=== PATIENT | female | born 1990 | race Caucasian/White ===

== ENCOUNTER 2018-12-18 10:55 | Day surgery (SDC) | payer BC ==
[2018-12-18] MEDS ORDERED: ALBUTEROL SULFATE 0.083% NEB 2.5 MG/3 ML AMPUL NEB ONE (11:53)
[2018-12-18] MEDS ORDERED: FAMOTIDINE INJ/PF 20 MG/2 ML SDV IV ONE ×2 (11:59→12:15)
[2018-12-18] MEDS ORDERED: SCOPOLAMINE HYDROBROMIDE 1.5 MG PATCH.TD72 ONE (11:59)
[2018-12-18] MEDS ORDERED: SCOPOLAMINE HYDROBROMIDE 1.5 MG PATCH.TD72 TD ONE (12:15)
[2018-12-18] MEDS ORDERED: RINGERS SOLUTION,LACTATED 1,000 ML IV ONE (12:15)
[2018-12-18 12:23] LABS: HEMATOCRIT 37.6 % (36.0-47.0); HEMOGLOBIN 13.1 g/dL (12.0-15.5); MEAN CORPUSCULAR HEMOGLOBIN 29.2 pg (27.0-33.4); MEAN CORPUSCULAR HGB CONC 34.8 g/dL (32.0-36.0); MEAN CORPUSCULAR VOLUME 84 fl (80-97); PLATELET COUNT 148 10^3/uL (150-450); RED BLOOD COUNT 4.48 10^6/uL (3.72-5.28); WHITE BLOOD COUNT 3.7 10^3/uL (4.0-10.5)
[2018-12-18] MEDS ORDERED: LIDOCAINE 2% INJ-PF (100 MG/5 ML) SYRINGE ONE (12:45)
[2018-12-18] MEDS ORDERED: HYDROMORPHONE HCL INJ/PF 2 MG/ML AMPULE ONE (12:46)
[2018-12-18] MEDS ORDERED: PROPOFOL INJ 200 MG/20 ML VIAL IV ONE (12:46)
[2018-12-18] MEDS ORDERED: FENTANYL CITRATE INJ/PF 250 MCG/5 ML AMPULE ONE (12:46)
[2018-12-18] MEDS ORDERED: DIPHENHYDRAMINE HCL 50 MG/ML VIAL IV PRN (13:24)
[2018-12-18] MEDS ORDERED: FENTANYL CITRATE INJ/PF 100 MCG/2 ML AMPUL IV PRN ×3 (13:24)
[2018-12-18] MEDS: FENTANYL CITRATE INJ/PF 100 MCG/2 ML AMPUL ONE ×2 (13:55→14:05)
[2018-12-18] MEDS ORDERED: KETOROLAC TROMETHAMINE INJ/PF 30 MG/1 ML SDV ONE (13:55)
[2018-12-18] MEDS ORDERED: RINGERS SOLUTION,LACTATED 1,000 ML IV PRN (13:57)
[2018-12-18] MEDS ORDERED: OXYCODONE-ACETAMINOPHEN 5-325 MG TABLET PO PRN ×2 (13:57)
--- NOTE | 2018-12-18 14:04 | Operative Report ---
Operative Report DATE OF SURGERY: 12/18/18 PREOPERATIVE DIAGNOSIS: Pelvic pain, suspected right ovarian cyst POSTOPERATIVE DIAGNOSIS: Pelvic pain with bilateral endometriosis OPERATION: Diagnostic laparoscopy SURGEON: ROSITA LUGO ANESTHESIA: GA TISSUE REMOVED OR ALTERED: None COMPLICATIONS: None ESTIMATED BLOOD LOSS: Minimal INTRAOPERATIVE FINDINGS: Patient had endometriosis implants bilaterally behind both ovaries and on the right ovary as well. The right ovary had no large cysts present. It appears that her previous hemorrhagic cyst has nearly resolved from her previous ultrasound. PROCEDURE: Patient was taken the OR and placed in supine position. General anesthesia was induced. She is placed in dorsolithotomy position using Hayder stirrups. Her abdomen perineum and vagina were prepared and draped in sterile fashion. Her bladder was drained with a red rubber catheter and a sponge stick was placed in the vagina for manipulation of the uterus. Incision was made at the umbilicus natural umbilical defect was identified and dilated using a Katherine clamp. This allowed a blunt 5 port to be placed. Laparoscopy confirmed appropriate placement and the abdomen was insufflated with CO2 gas. Next a suprapubic incision was made and a 5 mm port placed under laparoscopic visualization. View of the pelvis was good. Both ovaries were inspected. No dominant cyst were noted. It appears the cyst on the right has nearly resolved. However behind a each ovary was a large pockets of endometriosis present. There were a few small implants on the ovary on the right near where the blood supply of the ovary enters from the pelvic side. The endometriosis is very diffuse and over vital structures and therefore any excision or cautery was not done. I would recommend a global treatment with Lupron. Pictures were taken. At this point the suprapubic port was removed. The gas was allowed to escape from the abdomen. The umbilical port and scope were removed at the same time. The fascia at the umbilicus was closed with a 2-0 Vicryl stitch and skin closed with a 4-0 undyed Vicryl stitch. Sponge stick was removed from the vagina. She is extubated in the OR and taken recovery room in stable condition.
[2018-12-18] MEDS ORDERED: ONDANSETRON HCL INJ/PF 4 MG/2 ML SDV ONE (14:06)
[2018-12-18] MEDS ORDERED: NEOSTIGMINE METHYLSULFATE 10 MG/10 ML VIAL ONE (14:06)
[2018-12-18] MEDS ORDERED: ROCURONIUM BROMIDE INJ 50 MG/5 ML VIAL IV ONE (14:06)
[2018-12-18] MEDS ORDERED: GLYCOPYRROLATE 1 MG/5 ML VIAL ONE (14:06)
--- NOTE | 2018-12-18 14:09 | Discharge Summary ---
Discharge Summary (SDC) - Discharge Final Diagnosis: Endometriosis Date of Surgery: 12/18/18 Discharge Date: 12/18/18 Condition: Good Prescriptions: Oxycodone HCl/Acetaminophen [Percocet 5-325 mg Tablet] 1 tab PO Q6HP PRN 7 Days #28 tablet PRN Reason: Ibuprofen [Motrin 800 mg Tablet] 800 mg PO Q8HP PRN #30 tablet PRN Reason: Referrals: ELSIE MCLEAN, B[employer] ATT[employer]ER-C [Primary Care Provider] - Discharge Diet: Regular Discharge Activity: Balance Activity w/Rest, Pelvic Rest Home Care Assistance: None Needed Report the Following to Your Physician Immediately: Fever over 101 Degrees, Unusual Bleeding
[2018-12-18] MEDS: HYDROMORPHONE HCL INJ/PF 2 MG/ML AMPULE ONE ×3 (14:15→14:25)
[2018-12-18] MEDS ORDERED: IBUPROFEN 800 MG TABLET PO PRN (14:30)
[2018-12-18] MEDS ORDERED: KETOROLAC TROMETHAMINE INJ/PF 30 MG/1 ML SDV IV PRN (14:30)
[2018-12-18] MEDS ORDERED: OXYCODONE-ACETAMINOPHEN 5-325 MG TABLET ONE (15:08)
[2018-12-18 17:02] VITALS: BP 106/59
== END 2018-12-18 16:30 | disposition home or self-care (01) ==
LOC: OROUT 10:55
PROVIDERS: ATTEND Obstetrics & Gynecology
DX: N80.1 Endometriosis of ovary (principal); R10.2 Pelvic and perineal pain; F17.210 Nicotine dependence, cigarettes, uncomplicated
CPT/HCPCS: 86900; 86901; 36415; 86850; 85027; 81025; 00840; 49320; J3490 ×2; J3010 ×2; J2001; J1885; J2710; J1170; J2405; J2704; S0028; 840

== ENCOUNTER 2018-12-25 11:16 | Emergency (ER) | payer BC ==
[2018-12-25] MEDS ORDERED: NORMAL SALINE 1000 ML 1,000 ML IV ONE (11:58)
[2018-12-25] MEDS ORDERED: OXYCODONE-ACETAMINOPHEN 5-325 MG TABLET PO ONE (11:59)
--- NOTE | 2018-12-25 12:01 | ER Document Report ---
ED Medical Screen (RME) - General Chief Complaint: Anxiety Stated Complaint: DIFFICULTY BREATHING Time Seen by Provider: 12/25/18 11:58 Primary Care Provider: ELSIE MCLEAN FNP-C [Primary Care Provider] - Follow up as needed Mode of Arrival: Wheelchair Information source: Patient Notes: Patient presents with complaints of pelvic and vaginal pain since having a l aparoscopic procedure to diagnose endometriosis last week. Patient reports vaginal discharge and constipation. Patient denies any fever or urinary symptoms. I have greeted and performed a rapid initial assessment of this patient. A comprehensive ED assessment and evaluation of the patient, analysis of test results and completion of the medical decision making process will be conducted by additional ED providers. TRAVEL OUTSIDE OF THE [place] IN LAST 30 DAYS: No - Related Data Allergies/Adverse Reactions: No Known Allergies Allergy (Verified 12/25/18 11:16) Past Medical History - Past Medical History Cardiac Medical History: Denies: Hx Coronary Artery Disease, Hx Heart Attack, Hx Hypertension Pulmonary Medical History: Denies: Hx Asthma, Hx Bronchitis, Hx COPD, Hx Pneumonia Neurological Medical History: Denies: Hx Cerebrovascular Accident, Hx Seizures Renal/ Medical History: Reports: Hx Kidney Stones Musculoskeltal Medical History: Denies Hx Arthritis Past Surgical History: Reports: Hx Oral Surgery - [place] teeth, Hx Orthopedic Surgery - Ganglion cyst removed from hand - Immunizations Hx Diphtheria, Pertussis, Tetanus Vaccination: Yes Physical Exam - Vital signs Vitals: Pulse BP Pulse Ox 113 H 128/71 H 100 12/25/18 11:20 12/25/18 11:20 12/25/18 11:20 - Abdominal Tenderness: Tender - Lower pelvic Course - Vital Signs Vital signs: Temp Pulse Resp BP Pulse Ox 113 H 128/71 H 100 12/25/18 11:20 12/25/18 11:20 12/25/18 11:20 Doctor's Discharge - Discharge Referrals: ELSIE MCLEAN FNP-C [Primary Care Provider] - Follow up as needed
[2018-12-25 12:37] LABS: ABSOLUTE EOSINOPHILS # (AUTO) 0.1 10^3/uL (0.0-0.6); ABSOLUTE LYMPHOCYTES (AUTO) 1.6 10^3/uL (0.5-4.7); ABSOLUTE MONOCYTES (AUTO) 0.5 10^3/uL (0.1-1.4); BASOPHILS % (AUTO) 0.5 % (0-2); EOSINOPHILS % (AUTO) 1.3 % (0-6); HEMATOCRIT 41.4 % (36.0-47.0); HEMOGLOBIN 14.3 g/dL (12.0-15.5); LYMPHOCYTES % (AUTO) 22.3 % (13-45); MEAN CORPUSCULAR HEMOGLOBIN 28.7 pg (27.0-33.4); MEAN CORPUSCULAR HGB CONC 34.4 g/dL (32.0-36.0); MEAN CORPUSCULAR VOLUME 83 fl (80-97); MONOCYTES % (AUTO) 7.4 % (3-13); PLATELET COUNT 200 10^3/uL (150-450); RED BLOOD COUNT 4.96 10^6/uL (3.72-5.28); SEGMENTED NEUTROPHILS % (AUTO) 68.5 % (42-78); TOTAL CELLS COUNTED % (AUTO) 100 %; WHITE BLOOD COUNT 7.4 10^3/uL (4.0-10.5)
[2018-12-25 12:53] LABS: APPEARANCE,URINE SLIGHTLY-CLOUDY; BILIRUBIN,URINE NEGATIVE (NEGATIVE); COLOR,URINE YELLOW; GLUCOSE, URINE NEGATIVE (NEGATIVE); KETONES,URINE NEGATIVE (NEGATIVE); LEUKOCYTE ESTERASE,URINE NEGATIVE (NEGATIVE); NITRITE,URINE NEGATIVE (NEGATIVE); PROTEIN,URINE NEGATIVE (NEGATIVE); URINE SPECIFIC GRAVITY 1.013; UROBILINOGEN,URINE NEGATIVE mg/dL (<2.0)
[2018-12-25 12:59] LABS: ALANINE AMINOTRANSFERASE 17 U/L (9-52); ALBUMIN 4.8 g/dL (3.5-5.0); ALKALINE PHOSPHATASE 63 U/L (38-126); ANION GAP 9 (5-19); ASPARTATE AMINO TRANSFERASE 23 U/L (14-36); BILIRUBIN,DIRECT 0.3 mg/dL (0.0-0.4); BILIRUBIN,TOTAL 0.6 mg/dL (0.2-1.3); BLOOD UREA NITROGEN 17 mg/dL (7-20); CALCIUM 9.9 mg/dL (8.4-10.2); CARBON DIOXIDE 26 mmol/L (22-30); CHLORIDE 105 mmol/L (98-107); GLUCOSE 86 mg/dL (75-110); POTASSIUM 4.2 mmol/L (3.6-5.0); SODIUM 139.8 mmol/L (137-145); TOTAL PROTEIN 8.2 g/dL (6.3-8.2)
[2018-12-25] MEDS ORDERED: KETOROLAC TROMETHAMINE INJ/PF 30 MG/1 ML SDV IV ONE (13:12)
--- NOTE | 2018-12-25 14:04 | ER Document Report ---
ED General - General Chief Complaint: Anxiety Stated Complaint: DIFFICULTY BREATHING Time Seen by Provider: 12/25/18 11:58 Primary Care Provider: ROSITA FAIRCHILD MD [ACTIVE STAFF] - Follow up as needed Mode of Arrival: Wheelchair Information source: Patient Notes: Patient is a 28-year-old female presenting to the emergency department chief complaint of pelvic pain and lower abdominal pain. Patient reports she had a exploratory laparotomy done [address] Cem Fairchild here at [place]. She reports at that time she was diagnosed with endometriosis. She reports she was recovering well and was feeling back to her normal self until Monday which was 2 days ago. She reports at that time pain increased significantly, and has worsened to the point of her returning to the emergency department. She denies any nausea, vomiting, diarrhea or fever. She reports it feels like a pulling and tearing pain in her low abdomen down to her vaginal area. She also reports that she was undergoing treatment for PID approximately 2 weeks ago and states that she only took about 4 days worth of the antibiotics and then stopped. TRAVEL OUTSIDE OF THE [place] IN LAST 30 DAYS: No - Related Data Allergies/Adverse Reactions: No Known Allergies Allergy (Verified 12/25/18 11:16) Past Medical History - General Information source: Patient - Social History Smoking Status: Current Every Day Smoker Chew tobacco use (# tins/day): No Frequency of alcohol use: None Drug Abuse: None Family History: DM Patient has suicidal ideation: No Patient has homicidal ideation: No - Past Medical History Cardiac Medical History: Denies: Hx Coronary Artery Disease, Hx Heart Attack, Hx Hypertension Pulmonary Medical History: Denies: Hx Asthma, Hx Bronchitis, Hx COPD, Hx Pneumonia Neurological Medical History: Denies: Hx Cerebrovascular Accident, Hx Seizures Renal/ Medical History: Reports: Hx Kidney Stones. Denies: Hx Peritoneal Dialysis Musculoskeletal Medical History: Denies Hx Arthritis Past Surgical History: Reports: Hx Gynecologic Surgery - laproscopy, Hx Oral Surgery - [place] teeth, Hx Orthopedic Surgery - Ganglion cyst removed from hand - Immunizations Hx Diphtheria, Pertussis, Tetanus Vaccination: Yes Physical Exam - Vital signs Vitals: Pulse BP Pulse Ox 113 H 128/71 H 100 12/25/18 11:20 12/25/18 11:20 12/25/18 11:20 - Notes Notes: PHYSICAL EXAMINATION: GENERAL: Well-appearing, well-nourished. HEAD: Atraumatic, normocephalic. EYES: Pupils equal round and reactive to light, extraocular movements intact, sclera anicteric, conjunctiva are normal. ENT: Nares patent, oropharynx clear without exudates. Moist mucous membranes. NECK: Normal range of motion, supple without lymphadenopathy LUNGS: Breath sounds clear to auscultation bilaterally and equal. No wheezes rales or rhonchi. HEART: Regular rate and rhythm without murmurs ABDOMEN: Soft, nondistended abdomen. TTP to RLQ. No guarding, no rebound. No masses appreciated. : CMT, R adnexal tenderness, white vaginal d/c on speculum exam. No CVAT. Musculoskeletal: Normal range of motion, no pitting or edema. No cyanosis. NEUROLOGICAL: Cranial nerves grossly intact. Normal speech, normal gait. Normal sensory, motor exams PSYCH: Normal mood, normal affect. SKIN: Warm, Dry, normal turgor, no rashes or lesions noted. Abdominal lab sites intact and healing well with no erythema or drainage. Course - Re-evaluation Re-evalutation: CBC, CMP and urinalysis are unremarkable. A transvaginal ultrasound was performed and shows no acute findings. Patient was then sent for a CT of the abdomen and pelvis with IV contrast. CT of the abdomen pelvis shows trace free fluid in the pelvis and a small amount of intra-abdominal free air consistent with reported recent laparoscopic surgery. Pelvic exam was performed, specimen was obtained for wet mount. There was a thick white discharge at the cervix. Patient did have cervical motion tenderness and right-sided adnexal tenderness. 12/25/18 17:23 Wet mount is negative for any abnormalities. I did consult to the OB on-call, Dr. Overton. Tian would like us to start her on doxycycline and have her follow-up with Dr. Fairchild in the office tomorrow morning. - Vital Signs Vital signs: Temp Pulse Resp BP Pulse Ox 97.9 F 65 16 121/55 L 100 12/25/18 19:09 12/25/18 19:09 12/25/18 19:09 12/25/18 19:09 12/25/18 19:09 - Laboratory Result Diagrams: 12/25/18 12:20 12/25/18 12:20 Discharge - Discharge Clinical Impression: Pelvic pain, Lower abdominal pain Condition: Stable Disposition: HOME, SELF-CARE Instructions: Anxiety ([facility]) Additional Instructions: Your work-up today in the emergency department was unremarkable. I have spoken to the LIBRARIAN HELPER on-call for Dr. Fairchild. Her name is Dr. Overton. She would like you to be seen in the office tomorrow by Dr. Fairchild. Please call their office at 8:00 in the morning, let them know you were seen in the emergency department and that we spoke with their on-call doctor. Let them know they wanted you to be seen tomorrow. Please continue to take medications as prescribed. Take 1 doxycycline tablet in the morning, you are already given your dose for tonight. You may use your Percocet as needed for pain that was prescribed to you by Dr. Fairchild. You may also take ibuprofen 600 mg every 6 hours. Return to the emergency department for any new or worsening symptoms to include persistent abdominal pain, development of fever, persistent vomiting or any other symptom that is concerning to you. Prescriptions: Doxycycline Hyclate 100 mg PO BID #14 capsule Forms: Parent Work Note, Return to Work Referrals: ROSITA FAIRCHILD MD [ACTIVE STAFF] - Follow up as needed
[2018-12-25] MEDS ORDERED: HYDROMORPHONE HCL INJ/PF 2 MG/ML AMPULE IV ONE ×2 (14:30→17:11)
[2018-12-25] MEDS ORDERED: ONDANSETRON HCL INJ/PF 4 MG/2 ML SDV IV ONE (14:30)
--- NOTE | 2018-12-25 14:59 | RADIOLOGY REPORT (SQ) ---
EXAM DESCRIPTION: U/S NON OB PEL TV W/DOPPLER COMPLETED DATE/TIME: 12/25/2018 2:41 pm REASON FOR STUDY: pelvic/abd pain s/p laparscopy 7 days ago DEMONSTRATING ENDOMETRIOSIS COMPARISON: None. TECHNIQUE: Dynamic and static grayscale images acquired of the pelvis via transvaginal approach and recorded on PACS. Additional selected color Doppler and spectral images recorded. LIMITATIONS: None. FINDINGS: UTERUS: Contour normal. No mass. Uterus is 7.5 x 4 x 3.2 cm in size ENDOMETRIAL STRIPE: No focal or generalized thickening. No masses. Endometrium 6 mm in thickness. CERVIX: No nabothian cysts. Closed, 2.6 cm in length. RIGHT OVARY AND DOPPLER: Normal size, 3.2 x 2.2 x 2.2 cm. No worrisome masses. Normal arterial vascul ar flow without evidence for torsion. LEFT OVARY AND DOPPLER: Normal size, 4.4 x 2.5 x 2.6 cm. No worrisome masses. Normal arterial vascula r flow without evidence for torsion. FREE FLUID: None noted. OTHER: No other significant finding. IMPRESSION: NORMAL TRANSVAGINAL PELVIC ULTRASOUND. TECHNICAL DOCUMENTATION: JOB ID: [id number] [employer]- All Rights Reserved Rev-11/17 Reading location - IP/workstation name: [email or web address]
--- NOTE | 2018-12-25 15:42 | RADIOLOGY REPORT (SQ) ---
EXAM DESCRIPTION: CT ABD/PELVIS WITH IV ONLY COMPLETED DATE/TIME: 12/25/2018 3:24 pm REASON FOR STUDY: recent laparoscopic surgery, pelvic/abd pain COMPARISON: None. TECHNIQUE: CT scan of the abdomen and pelvis performed using helical scanning technique with dynamic intravenous contrast injection. No oral contrast. Images reviewed with lung, soft tissue, and bone w indows. Reconstructed coronal and sagittal MPR images reviewed. Delayed images for evaluation of the urinary system also acquired. All images stored on PACS. All CT scanners at this facility use dose modulation, iterative reconstruction, and/or weight based d osing when appropriate to reduce radiation dose to as low as reasonably achievable (ALARA). [facility]: Dose Right [facility]: CareDose [facility]: Dose Right [facility]: Teradose 4D [facility]: FreeAgent CONTRAST TYPE AND DOSE: contrast/concentration: Isovue 350.00 mg/ml; Total Contrast Delivered: 59.0 ml; Total Saline Delivered: 65.0 ml RENAL FUNCTION: GFR > 60. RADIATION DOSE: CT Rad equipment meets quality standard of care and radiation dose reduction techniq ues were employed. CTDIvol: 5.0 - 5.5 mGy. DLP: 550 mGy-cm.. LIMITATIONS: None. FINDINGS: LOWER CHEST: No significant findings. LIVER: Normal size. No enhancing masses. No dilated ducts. SPLEEN: Normal size. No focal lesions. PANCREAS: No masses identified. No significant calcifications. No adjacent inflammation or peripancre atic fluid collections. Pancreatic duct not dilated. GALLBLADDER: No calcified stones. No inflammatory changes to suggest cholecystitis. ADRENAL GLANDS: No significant masses. RIGHT KIDNEY AND URETER: No cysts identified. No solid masses identified. No calcified stones. No hyd ronephrosis or hydroureter. LEFT KIDNEY AND URETER: No cysts identified. No solid masses identified. No calcified stones. No hydr onephrosis or hydroureter. AORTA AND VESSELS: No aneurysm. No dissection. Renal arteries, SMA, celiac without significant stenos is. RETROPERITONEUM: No bulky retroperitoneal adenopathy. BOWEL AND PERITONEAL CAVITY: Small amount of free air. No obstruction or inflammatory changes. No f ree fluid. APPENDIX: Normal. PELVIS: Trace pelvic free fluid. Unremarkable bladder. ABDOMINAL WALL: Small amount of the anterior intra-abdominal free air. Small anterior midline and p eriumbilical subcutaneous swelling consistent with recent procedure. BONES: No acute findings. OTHER: No other significant finding. IMPRESSION: Trace pelvic free fluid and small amount of intra-abdominal free air consistent with rep orted recent laparoscopic surgery. Otherwise, no significant findings. TECHNICAL DOCUMENTATION: JOB ID: [id number] Quality ID # [id number]: Final reports with documentation of one or more dose reduction techniques (e.g., Au tomated exposure control, adjustment of the mA and/or kV according to patient size, use of iterative reconstruction technique) 2010 [employer]- All Rights Reserved Reading location - IP/workstation name: [email or web address]
[2018-12-25 16:55] LABS: RBCS (WET MOUNT) RARE RBCS SEEN; T.VAGINALIS (WET MOUNT) NO TRICHOMONAS SEEN; WBCS (WET MOUNT) RARE WBCS SEEN; YEAST (WET MOUNT) NO YEAST SEEN
[2018-12-25] MEDS ORDERED: DOXYCYCLINE HYCLATE 100 MG TABLET PO ONE (17:22)
[2018-12-25 19:10] VITALS: BP 121/55
== END 2018-12-25 19:10 | disposition home or self-care (01) ==
LOC: ER 11:16
DX: N80.9 Endometriosis, unspecified (principal); R10.2 Pelvic and perineal pain; Z98.890 Other specified postprocedural states; F17.200 Nicotine dependence, unspecified, uncomplicated
CPT/HCPCS: 96376; 99284; 96361; 96374; 96375; 36415; 87210; 84703; 85025; 80053; 81001; 76830; 93976; 74177; J1885; J1170; J2405; J7030